=== PATIENT | male | born 1960 | race Two or more races ===

== ENCOUNTER 2017-09-25 23:49 | Inpatient (IN) | payer OTHER ==
[~2017-09-25] VITALS: Ht 180.3 cm; Wt 70.8 kg
--- NOTE | 2017-09-26 00:53 | NUR ---
DR BJORN MARTÍNEZ MD AT BEDSIDE FOR MSE.
[2017-09-26] MEDS ORDERED: ONDANSETRON 4 MG/2 ML VIAL IV ONE (01:00)
[2017-09-26] MEDS ORDERED: IV NORMAL SALINE 1000 ML BAG IV ONE (01:00)
[2017-09-26] MEDS ORDERED: HYDROMORPHONE 1 MG/1 ML DISP.SYRIN IV ONE ×2 (01:00→03:00)
--- NOTE | 2017-09-26 01:03 | NUR ---
PT C/O SHARP & RADIATING ABD PAIN. ALSO C/O N/V. PT IS CURRENTLY WRETCHING, BUT NO VOMITING SINCE PT HAS BEEN IN DEPARTMENT. PT STATES HE HAS A HX OF PANCREATITIS AND GASTRITIS. PT IS A&OX4. AMBULATORY W/ STEADY GAIT.
[2017-09-26] MEDS ORDERED: HYDROMORPHONE 2 MG/1 ML DISP.SYRIN ONE ×2 (01:26→02:51)
[2017-09-26] MEDS ORDERED: ONDANSETRON 4 MG/2 ML VIAL ONE (01:26)
[2017-09-26 01:48] LABS: HEMOGLOBIN 14.7 G/DL (14.0-18.0); MEAN CORPUSCULAR HEMOGLOBIN 32.8 UUG (27.0-31.0); MEAN CORPUSCULAR HGB CONC 35 g/dL (32.0-37.0); MEAN CORPUSCULAR VOLUME 93.8 FL (82.0-92.0); PLATELET COUNT (AUTO) 242 K/UL (150-450); RED BLOOD CELL COUNT(AUTO) 4.48 MIL/UL (4.7-6.1); WHITE BLOOD COUNT (AUTO) 7.2 K/UL (4.0-11.2)
[2017-09-26 01:49] LABS: BASOPHILS % (AUTO) 0.5 % (0.0-2.0); EOSINOPHILS % (AUTO) 1.2 % (0.0-7.0); LYMPHOCYTES % (AUTO) 27.2 % (20.5-51.5); MONOCYTES % (AUTO) 11.7 % (0.0-11.0); NEUTROPHILS % (AUTO) 59.4 % (38.5-71.5)
[2017-09-26 01:53] LABS: BILIRUBIN,DIRECT 0.1 mg/dL (0.0-0.2); BILIRUBIN,TOTAL 0.5 mg/dL (0.2-1.0); CREATININE 1.1 mg/dL (0.6-1.3); TOTAL PROTEIN, SERUM 8.5 g/dL (6.4-8.2)
[2017-09-26] MEDS ORDERED: IOHEXOL 300MG/ML 100 ML INFUS..BTL ONE (02:11)
[2017-09-26] MEDS ORDERED: SWABABLE VALVE TRANSFER SET EA MC ONE (02:11)
[2017-09-26] MEDS ORDERED: NORMAL SALINE FLUSH 10 ML DISP.SYRIN ONE (02:11)
[2017-09-26] MEDS ORDERED: IV NORMAL SALINE 100 ML ONE (02:11)
--- NOTE | 2017-09-26 02:17 | NUR ---
PT TAKEN TO CT VIA WHEELCHAIR. NO DISTRESS NOTED AT THIS TIME.
--- NOTE | 2017-09-26 02:33 | NUR ---
PT BACK FROM CT. NO ACUTE EVENTS. PT AMBULATED TO BATHROOM INDEPENDENTLY W/ STEADY GAIT. NO DISTRESS NOTED.
[2017-09-26 02:58] LABS: *BILIRUBIN,URIN NEGATIVE (NEGATIVE); *BLOOD, URINE NEGATIVE (NEGATIVE); *CLARITY,URINE CLEAR (CLEAR); *COLOR,URINE YELLOW (YELLOW); *KETONES,URINE NEGATIVE (NEGATIVE); *PROTEIN,URINE NEGATIVE (NEGATIVE); *UROBILINOGEN,URINE 0.2 E.U./dl (NORMAL); LEUKOCYTE ESTERASE ,URINE NEGATIVE (NEGATIVE); NITRITE, URINE NEGATIVE (NEGATIVE); PH,URINE 5.5 (5.0-8.0); UGLUCOSE NEGATIVE (NEGATIVE)
[2017-09-26 03:17] LABS: BACTERIA,URINE NONE SEEN /HPF (NONE SEEN); RBC,URINE NONE SEEN /HPF (0-3); SQUAMOUS EPITHELIAL CELL,UR FEW /HPF (NONE SEEN)
[2017-09-26 03:18] LABS: MUCUS,URINE FEW /LPF (0-FEW); WBC,URINE 0-3 /HPF (0-3)
--- NOTE | 2017-09-26 03:27 | NUR ---
PT HAS NOT TAKEN ANY MEDS IN A FEW WEEKS.
--- NOTE | 2017-09-26 03:50 | NUR ---
REPORT GIVEN TO TETO BAUMANN.
[2017-09-26] MEDS ORDERED: IV NS 1000 ML 1,000 ML IV PRN (03:55)
[2017-09-26 04:00] VITALS: BP 151/95
[2017-09-26] MEDS ORDERED: ONDANSETRON 4 MG/2 ML VIAL IV PRN (04:00)
[2017-09-26] MEDS ORDERED: Z GUARD REMEDY PASTE 57 GM TUBE TOP PRN (04:00)
[2017-09-26] MEDS ORDERED: MAGNESIUM HYDROXIDE 30 ML LIQUID UDC PO PRN (04:00)
[2017-09-26] MEDS ORDERED: ACETAMINOPHEN 325 MG TABLET PO PRN (04:00)
[2017-09-26] MEDS ORDERED: MORPHINE SULFATE 4 MG/1 ML DISP.SYRIN IV PRN (04:00)
--- NOTE | 2017-09-26 04:18 | NUR ---
ACCOMPANIED BY SECURITY TO TAKE PT TO CAR TO RETRIEVE PERSONAL BELINGINGS. PT TAKEN VIA WHEELCHAIR. NO ACUTE EVENTS. PT BACK IN ROOM. PENDING ADMISSION.
--- NOTE | 2017-09-26 04:50 | NUR ---
ADMITTED IN MED SURG FLOOR UNDER THE CARE OF CELIA DE LA CRUZ, BELONGING LIST DONE.
--- NOTE | 2017-09-26 04:50 | NUR ---
Pt. admitted to [facility], under care of JONO. Belongs List completed
--- NOTE | 2017-09-26 07:38 | NUR ---
Received pt awake, alert and oriented times 4. Pt was stating 9/10 pain across his abdomen. Morphine 2mg given. Pt states that is not enough for him. Pt is NPO, no s/s of immediate SOB or distress. Noted with anxiety and pain. Pt is requesting 6mg Morphine, Benadryl, Ativan and states he feels bloated, pt concern will be mentioned to the hospitalist.
--- NOTE | 2017-09-26 08:28 | NUR ---
Hospitalist is aware of patient's requests
[2017-09-26] MEDS: PANTOPRAZOLE SODIUM 40 MG VIAL IV SCH (08:58)
[2017-09-26] MEDS: HYDROCODONE/APAP 5-325MG TABLET PO PRN ×4 (10:09→22:58)
[2017-09-26 11:46] VITALS: BP_SYST 110; BP_SYST 138; BP_DIAS 65; BP_DIAS 91
[2017-09-26] MEDS: IV LACTATED RINGERS SOLUTION 1,000 ML IV PRN ×2 (12:14→20:30)
[2017-09-26] MEDS: MORPHINE SULFATE 4 MG/1 ML DISP.SYRIN IV PRN ×3 (12:14→21:17)
[2017-09-26] MEDS: LORAZEPAM 2 MG/1 ML VIAL IV PRN ×2 (13:18→22:07)
[2017-09-26] MEDS: diphenhydrAMINE 50 MG/1 ML VIAL IV PRN ×2 (13:18→19:45)
[2017-09-26 15:38] VITALS: BP 134/85
[2017-09-26] MEDS ORDERED: LIPASE/PROTEASE/AMYLASE 4200 UNITS CAPSULE.DR PO SCH (17:00)
[2017-09-26] MEDS ORDERED: THIAMINE HCL 200 MG/2 ML VIAL IM ONE (17:00)
[2017-09-26] MEDS: FOLIC ACID/VITAMIN B COMP W-C TABLET PO SCH (17:55)
[2017-09-26] MEDS: LIPASE/PROTEASE/AMYLASE 4200 UNITS CAPSULE.DR PO SCH (17:55)
[2017-09-26 20:00] VITALS: BP 140/91
--- NOTE | 2017-09-26 22:00 | NUR ---
Pt pleasant, cooperative. Ambulates well around the Unit and tolerates well. Pt on multiple med regimen for pain/discomfort. See EMar.
[2017-09-27] MEDS: MORPHINE SULFATE 4 MG/1 ML DISP.SYRIN IV PRN ×3 (00:45→10:17)
[2017-09-27] MEDS: diphenhydrAMINE 50 MG/1 ML VIAL IV PRN ×2 (01:45→10:18)
--- NOTE | 2017-09-27 01:50 | NUR ---
HAMIDA Melendrez called for sleeping med order per pt request; received Ambien order and carried out.
[2017-09-27] MEDS ORDERED: ZOLPIDEM 5 MG TABLET PO PRN (02:00)
[2017-09-27] MEDS: LORAZEPAM 2 MG/1 ML VIAL IV PRN ×2 (03:58→10:18)
[2017-09-27] MEDS: IV LACTATED RINGERS SOLUTION 1,000 ML IV PRN (03:59)
[2017-09-27 04:00] VITALS: BP 145/95
[2017-09-27] MEDS: HYDROCODONE/APAP 5-325MG TABLET PO PRN ×2 (06:00→14:34)
--- NOTE | 2017-09-27 06:00 | NUR ---
Barely slept, frequently ambulating around the halls. All needs met; pt very appreciative of care.
[2017-09-27 06:40] LABS: BASOPHILS % (AUTO) 0.9 % (0.0-2.0); EOSINOPHILS # (AUTO) 0.2 K/uL (0.0-0.7); EOSINOPHILS % (AUTO) 4.7 % (0.0-7.0); HEMATOCRIT 34.8 % (36.7-47.1); HEMOGLOBIN 12.1 g/dL (12.5-16.3); LYMPHOCYTES # (AUTO) 1.2 K/uL (20.0-40.0); LYMPHOCYTES % (AUTO) 31.6 % (20.5-51.5); MEAN CORPUSCULAR HEMOGLOBIN 32.9 uug (23.8-33.4); MEAN CORPUSCULAR HGB CONC 35 g/dL (32.5-36.3); MEAN CORPUSCULAR VOLUME 94.6 fL (73.0-96.2); MONOCYTES # (AUTO) 0.5 K/uL (2.0-10.0); MONOCYTES % (AUTO) 11.4 % (0.0-11.0); NEUTROPHILS % (AUTO) 51.4 % (38.5-71.5); PLATELET COUNT (AUTO) 162 K/uL (152-348); RED BLOOD CELL COUNT(AUTO) 3.68 MIL/uL (4.06-5.63); WHITE BLOOD COUNT (AUTO) 3.9 K/uL (3.6-10.2)
[2017-09-27 06:46] LABS: BILIRUBIN,TOTAL 0.8 mg/dL (0.2-1.0); CREATININE 1.1 mg/dL (0.6-1.3); MAGNESIUM 1.8 mg/dL (1.8-2.4); PHOSPHOROUS 3.7 mg/dL (2.5-4.9); POTASSIUM 4.2 mmol/L (3.5-5.1); TOTAL PROTEIN, SERUM 6.5 g/dL (6.4-8.2)
[2017-09-27 06:53] LABS: THYROID STIMULATING HORMONE 3.834 mIU/mL (0.358-3.740)
--- NOTE | 2017-09-27 07:10 | NUR ---
Received pt awake, alert and oriented times 4, pt c/co pain but informed him he has pain medication given at 6am. Pt is under no apparent s/s of SOB or respiratory distress
[2017-09-27] MEDS: PANTOPRAZOLE SODIUM 40 MG VIAL IV SCH (08:08)
[2017-09-27] MEDS: FOLIC ACID/VITAMIN B COMP W-C TABLET PO SCH (08:08)
[2017-09-27] MEDS: LIPASE/PROTEASE/AMYLASE 4200 UNITS CAPSULE.DR PO SCH ×2 (08:08→12:26)
--- NOTE | 2017-09-27 09:00 | NUR ---
ENGINEERING TEST SPECIALIST consulting with the pt and pt was informed about discharge orders
--- NOTE | 2017-09-27 11:12 | NUR ---
Informed pt that he was discharge today, pt states he wants to stay another day. He was informed he could but that his IV medication would have to be discontinued, pt wants to speak with a shelving supervisor. Hospital shelving supervisor was called and informed her about the pt's request to take to her.
[2017-09-27 11:47] VITALS: BP 149/96
[2017-09-27 15:37] VITALS: BP 150/90
--- NOTE | 2017-09-27 16:00 | NUR ---
Pt talked to Director of the med-surg floor. It was informed that the pt had been discharged with orders and to F/U with primary doctor for further care. Personal belonging signed for, discharge paper signed for ID band & IV line removed. Pt states pain 8-9/10 since arrival even after pain medication given. Pt stated he has a high pain tolerance. Pt was given his prescription and pt verbally stated he understood what they were for. Pt is under no immediate s/s of SOB or respiratory distress.
[2017-09-28] MEDS ORDERED: PANTOPRAZOLE SODIUM 40 MG TABLET.DR PO SCH (07:00)
== END 2017-09-27 15:52 | disposition home or self-care (01) | DRG 282 ==
LOC: ER 23:56 → MED 09-26 04:34
PROVIDERS: ADMIT Nurse Practitioner Acute Care; ATTEND Nurse Practitioner Acute Care
DX: K86.0 Alcohol-induced chronic pancreatitis (principal); K70.10 Alcoholic hepatitis without ascites; F10.20 Alcohol dependence, uncomplicated; Y90.9 Presence of alcohol in blood, level not specified; Z96.89 Presence of other specified functional implants; K21.9 Gastro-esophageal reflux disease without esophagitis; R14.0 Abdominal distension (gaseous); R74.0 Nonspecific elevation of levels of transaminase and lactic acid dehydrogenase [LDH]
CPT/HCPCS: 36415; 83690; 83735; 84100; 84443; 85025; 85730; A4663; C9113; J1170; J1200; J2060; J2270; J2405; J3411; J3490; J7030; J7120; Q9967

== ENCOUNTER 2019-05-16 18:28 | Inpatient (IN) | payer OTHER ==
[~2019-05-16] VITALS: Ht 182.9 cm; Wt 74.8 kg
--- NOTE | 2019-05-16 19:00 | NUR ---
Patient came into ER via wheelchair c/o lower back and tailbone pain. Patient states he is withdrawing and had a seizure which caused back injury. Patient upon arrival A/Ox3 with breath smelling of ETOH but patient denies drinking ETOH today.
[2019-05-16] MEDS ORDERED: HYDROMORPHONE 1 MG/1 ML DISP.SYRIN IM ONE (19:15)
[2019-05-16] MEDS ORDERED: IV NORMAL SALINE 1000 ML BAG IV ONE (19:15)
[2019-05-16] MEDS ORDERED: ONDANSETRON 4 MG/2 ML VIAL IV ONE ×2 (19:15→21:30)
[2019-05-16] MEDS ORDERED: HYDROMORPHONE 1 MG/1 ML DISP.SYRIN ONE ×2 (19:24→21:35)
[2019-05-16] MEDS ORDERED: ONDANSETRON 4 MG/2 ML VIAL ONE ×2 (19:24→21:35)
[2019-05-16 19:35] LABS: BASOPHILS # (AUTO) 0.1 K/uL (0.0-8.0); BASOPHILS % (AUTO) 0.7 % (0.0-2.0); EOSINOPHILS # (AUTO) 0.1 K/uL (0.0-0.7); EOSINOPHILS % (AUTO) 1.1 % (0.0-7.0); HEMATOCRIT 40.7 % (36.7-47.1); HEMOGLOBIN 13.3 g/dL (12.5-16.3); LYMPHOCYTES # (AUTO) 1.9 K/uL (20.0-40.0); LYMPHOCYTES % (AUTO) 22.9 % (20.5-51.5); MEAN CORPUSCULAR HEMOGLOBIN 28.9 uug (23.8-33.4); MEAN CORPUSCULAR HGB CONC 33 g/dL (32.5-36.3); MEAN CORPUSCULAR VOLUME 88.5 fL (73.0-96.2); MONOCYTES # (AUTO) 0.4 K/uL (2.0-10.0); MONOCYTES % (AUTO) 4.6 % (0.0-11.0); NEUTROPHILS # (AUTO) 5.9 K/uL (1.8-8.9); NEUTROPHILS % (AUTO) 70.7 % (38.5-71.5); PLATELET COUNT (AUTO) 339 K/uL (152-348); WHITE BLOOD COUNT (AUTO) 8.4 K/uL (3.6-10.2)
[2019-05-16 19:40] LABS: POTASSIUM 4.6 mmol/L (3.5-5.1)
[2019-05-16 19:46] LABS: BILIRUBIN,DIRECT 0.1 mg/dL (0.0-0.2); BILIRUBIN,TOTAL 0.3 mg/dL (0.2-1.0); TOTAL PROTEIN, SERUM 8.3 g/dL (6.4-8.2)
[2019-05-16 20:42] LABS: *BILIRUBIN,URIN NEGATIVE (NEGATIVE); *BLOOD, URINE NEGATIVE (NEGATIVE); *CLARITY,URINE CLEAR (CLEAR); *COLOR,URINE YELLOW (YELLOW); *KETONES,URINE NEGATIVE (NEGATIVE); *UROBILINOGEN,URINE 0.2 E.U./dl (NORMAL); LEUKOCYTE ESTERASE ,URINE NEGATIVE (NEGATIVE); NITRITE, URINE NEGATIVE (NEGATIVE); PH,URINE 5.5 (5.0-8.0); UGLUCOSE NEGATIVE (NEGATIVE)
[2019-05-16 20:53] LABS: *AMPHETAMINE, URINE NEGATIVE (NEGATIVE); *BARBITURATE, URINE NEGATIVE (NEGATIVE); *CANNABINOID, URINE NEGATIVE (NEGATIVE); *COCCAINE, URINE NEGATIVE (NEGATIVE); *OPIATE, URINE POSITIVE (NEGATIVE); *PHENCYCLIDINE SCREEN,URINE NEGATIVE (NEGATIVE)
[2019-05-16] MEDS ORDERED: HYDROMORPHONE 1 MG/1 ML DISP.SYRIN IV ONE (21:30)
--- NOTE | 2019-05-16 21:30 | NUR ---
IV Hep Lock infiltrated on left hand. IV removed. Catheter intact and site benign. Pressure and 4x4 gauze applied to site. No bleeding noted.
[2019-05-16] MEDS ORDERED: LORAZEPAM 2 MG/1 ML VIAL IV ONE (23:15)
--- NOTE | 2019-05-16 23:25 | NUR ---
Patient c/o anxiety. Dr Nino made aware.
[2019-05-16] MEDS ORDERED: LORAZEPAM 2 MG/1 ML VIAL ONE (23:31)
--- NOTE | 2019-05-16 23:47 | NUR ---
Recieved authorization from insurance company to admit patient.
--- NOTE | 2019-05-16 23:49 | NUR ---
Paged E[facility] panel. Waiting for Dr Cardona to call back.
--- NOTE | 2019-05-17 00:25 | NUR ---
DR Nino speaking with DR Pepito Arellano MD motion picture scene builder for [facility].
[2019-05-17] MEDS ORDERED: MAGNESIUM HYDROXIDE 30 ML LIQUID UDC PO PRN (00:45)
[2019-05-17] MEDS ORDERED: ONDANSETRON 4 MG/2 ML VIAL IV PRN (00:45)
[2019-05-17] MEDS ORDERED: ACETAMINOPHEN 325 MG TABLET PO PRN (00:45)
[2019-05-17] MEDS ORDERED: HYDROMORPHONE 1 MG/1 ML DISP.SYRIN IV ONE (01:00)
[2019-05-17] MEDS ORDERED: PANT40TA2 PO (01:11)
[2019-05-17] MEDS ORDERED: GABA600T12 PO (01:11)
[2019-05-17] MEDS ORDERED: AMYL1CAP58 PO (01:11)
--- NOTE | 2019-05-17 01:20 | NUR ---
Transfer to 3rd floor via gurny.
[2019-05-17 01:34] VITALS: BP 142/94
[2019-05-17] MEDS: IV D5 1/2 NS 1000 ML 1,000 ML IV PRN ×2 (01:57→17:51)
[2019-05-17] MEDS: LORAZEPAM 2 MG/1 ML VIAL IV PRN ×3 (02:33→17:52)
[2019-05-17 04:00] VITALS: BP 116/68
[2019-05-17] MEDS: HYDROCODONE/APAP 10-325 MG TABLET PO PRN ×2 (04:05→11:04)
[2019-05-17] MEDS: PANTOPRAZOLE SODIUM 40 MG TABLET.DR PO SCH (06:24)
[2019-05-17] MEDS: HYDROMORPHONE 1 MG/1 ML DISP.SYRIN IV PRN ×3 (06:24→19:54)
--- NOTE | 2019-05-17 07:30 | NUR ---
Patient calm comfortable with no signs of distress; patient will continue to be monitored.
[2019-05-17] MEDS ORDERED: PANTOPRAZOLE SODIUM 40 MG TABLET.DR PO SCH (09:00)
[2019-05-17] MEDS: GABAPENTIN 300 MG CAPSULE PO SCH ×3 (09:02→17:51)
[2019-05-17] MEDS: LIPASE/PROTEASE/AMYLASE 4200 UNITS CAPSULE.DR PO SCH ×3 (09:03→17:50)
[2019-05-17 11:17] VITALS: BP 128/89
[2019-05-17] MEDS: diphenhydrAMINE 25 MG CAP PO PRN (15:05)
[2019-05-17 15:08] VITALS: BP 138/91
--- NOTE | 2019-05-17 18:41 | NUR ---
Patient has been stable through out shift with no signs of distress; patient with pain; but given prn Dilaudid as scheduled along with Ativan for alcohol withdrawal; patient with stable vital signs; Report given to oncoming nurse.
--- NOTE | 2019-05-17 19:35 | NUR ---
RECEIVED PATIENT AWAKE IN BED. AO X 4. MIDLINE ON LEFT UPPER ARM FLUSHING, PATENT, AND INTACT. COMPLAINS OF PAIN IN ABDOMEN AND BACK ABOUT 9/10. WILL MEDICATE APPROPRIATELY. IMMEDIATE NEEDS ATTENDED. SAFETY PRECAUTIONS IN PLACE. WILL CONTINUE TO MONITOR
[2019-05-17 20:23] VITALS: BP 132/85
[2019-05-18] MEDS: HYDROMORPHONE 1 MG/1 ML DISP.SYRIN IV PRN ×6 (00:04→23:04)
[2019-05-18] MEDS: diphenhydrAMINE 25 MG CAP PO PRN (00:10)
[2019-05-18] MEDS: LORAZEPAM 2 MG/1 ML VIAL IV PRN ×3 (02:49→23:16)
[2019-05-18] MEDS: IV D5 1/2 NS 1000 ML 1,000 ML IV PRN ×3 (03:53→23:05)
--- NOTE | 2019-05-18 05:16 | NUR ---
PATIENT SLEPT INTERMITTENTLY THROUGHOUT THE NIGHT. PATIENT COMPLAINED OF SEVERE PAIN IN THE BACK AND ABDOMEN. MANAGED PAIN WITH PRN PAIN MEDICATIONS. NO ACUTE CHANGE IN PATIENT CONDITION. VITAL SIGNS WITHIN NORMAL LIMITS. WILL ENDORSE TO ONCOMING SHIFT.
[2019-05-18 05:59] VITALS: BP 132/80
[2019-05-18] MEDS: PANTOPRAZOLE SODIUM 40 MG TABLET.DR PO SCH (06:13)
--- NOTE | 2019-05-18 07:20 | NUR ---
RECEIVED PATIENT IN BED, AOX4. PATIENT COMPLAINS OF BACK AND ABDOMINAL PAIN, BUT DENIES SOB OR CHEST PAIN. WILL GIVE PAIN MEDICATION ORDERED. LEFT UPPER MIDLINE IN PLACE AND FLUSHING WELL WITH D5 1/2 NS AT 100CC/HR. SAFETY AND FALL PREVENTION IN PLACE. CALL LIGHT IN REACH, BED IN LOW POSITION AND LOCKED. WILL CONTINUE TO MONITOR.
[2019-05-18] MEDS: GABAPENTIN 300 MG CAPSULE PO SCH ×3 (08:55→17:04)
[2019-05-18] MEDS: LIPASE/PROTEASE/AMYLASE 4200 UNITS CAPSULE.DR PO SCH ×3 (08:55→17:04)
[2019-05-18 11:37] VITALS: BP 133/78
[2019-05-18] MEDS: HYDROCODONE/APAP 5-325MG TABLET PO PRN ×2 (11:40→20:34)
[2019-05-18] MEDS ORDERED: AMYL1CAP56 PO (13:58)
--- NOTE | 2019-05-18 14:34 | NUR ---
Spoken with NNEKA from [email or web address] has set up appt for pt [phone] with pts PMD to follow up with. Date for appt is May 26 @ 1030.
[2019-05-18 15:56] VITALS: BP 150/92
--- NOTE | 2019-05-18 18:30 | NUR ---
PATIENT CONTINUED TO TO BE AOX4. PATIENT DOES NOT SHOW S/S OF RESPIRATORY DISTRESS OR SOB. PATIENT CONTINUES TO HAVE BACK/ABD. PAIN AND IS TREATED WITH PRN MEDICATIONS ORDERED. REMAINS STABLE THROUGHOUT THE SHIFT. SAFETY AND FALL PREVENTION IN PLACE. BED LOW AND LOCKED. CALL LIGHT IN REACH. WILL REPORT TO ONCOMING NURSE.
--- NOTE | 2019-05-18 19:00 | NUR ---
PATIENT ALERT ORIENTED, NO SOB NO CHEST PAIN, CONT ON PAIN MANAGEMENT, DUE PAIN ON BACK, AND WITHDRAWAL FROM ALCOHOL. CALL LIGHT WITHIN REACH.
[2019-05-18 19:54] VITALS: BP 136/82
[2019-05-19] MEDS: HYDROMORPHONE 1 MG/1 ML DISP.SYRIN IV PRN ×2 (03:05→08:57)
[2019-05-19 05:05] VITALS: BP 150/88
[2019-05-19] MEDS: PANTOPRAZOLE SODIUM 40 MG TABLET.DR PO SCH (06:23)
[2019-05-19 06:52] LABS: EOSINOPHILS # (AUTO) 0.2 K/uL (0.0-0.7); EOSINOPHILS % (AUTO) 4.8 % (0.0-7.0); LYMPHOCYTES # (AUTO) 1.2 K/uL (20.0-40.0); LYMPHOCYTES % (AUTO) 27.3 % (20.5-51.5); MEAN CORPUSCULAR HGB CONC 34 g/dL (32.5-36.3); MONOCYTES # (AUTO) 0.3 K/uL (2.0-10.0); MONOCYTES % (AUTO) 7.7 % (0.0-11.0); NEUTROPHILS # (AUTO) 2.5 K/uL (1.8-8.9); NEUTROPHILS % (AUTO) 59.2 % (38.5-71.5); RED BLOOD CELL COUNT(AUTO) 3.85 MIL/uL (4.06-5.63)
[2019-05-19] MEDS: IV D5 1/2 NS 1000 ML 1,000 ML IV PRN ×2 (07:00→08:47)
[2019-05-19 07:01] LABS: WHITE BLOOD COUNT (AUTO) 4.2 K/uL (3.6-10.2)
[2019-05-19 07:02] LABS: HEMATOCRIT 34.3 % (36.7-47.1); HEMOGLOBIN 11.6 g/dL (12.5-16.3); PLATELET COUNT (AUTO) 251 K/uL (152-348); POTASSIUM 4.1 mmol/L (3.5-5.1)
--- NOTE | 2019-05-19 07:36 | NUR ---
PATIENT ALERT ORIENTED, CONT ON PAIN MANAGEMENT, NO DISTRESS NOTED, ENDORSE TO NEXT SHIFT.
--- NOTE | 2019-05-19 08:00 | NUR ---
RECEIVED PATIENT RESTING IN BED COMFORTABLY. NO SIGNS OF ACUTE DISTRESS OR SOB. CALL LIGHT WITHIN REACH. PT'S PAIN MANAGED WITH MEDICATION. BED LOCKED AND IN LOW POSITION. PT ALERT AND ORIENTED X3. WILL CONTINUE TO MONITOR FOR SAFETY AND COMFORT.
[2019-05-19] MEDS: GABAPENTIN 300 MG CAPSULE PO SCH ×3 (08:56→17:44)
[2019-05-19] MEDS ORDERED: HYDR-4354 PO ×2 (08:58→15:09)
[2019-05-19] MEDS ORDERED: AMYL1CAP56 PO ×2 (09:02→15:09)
[2019-05-19] MEDS ORDERED: GABA600T PO (09:02)
[2019-05-19] MEDS: LIPASE/PROTEASE/AMYLASE 4200 UNITS CAPSULE.DR PO SCH ×3 (09:24→18:12)
[2019-05-19] MEDS: LORAZEPAM 2 MG/1 ML VIAL IV PRN (10:52)
[2019-05-19 11:18] VITALS: BP 137/100
[2019-05-19] MEDS ORDERED: CHLORDIAZEPOXIDE HCL 25 MG CAPSULE PO PRN (12:00)
[2019-05-19] MEDS: HYDROCODONE/APAP 10-325 MG TABLET PO PRN ×2 (13:12→17:44)
[2019-05-19] MEDS ORDERED: GABA600T12 PO (15:09)
[2019-05-19 16:00] VITALS: BP 151/90
--- NOTE | 2019-05-19 18:30 | NUR ---
PT DISCHARGED HOME. NO ACUTE DISTRESS OR SOB NOTED. PT USED WALKER ACCOMPANIED BY STAFF TO MAIN LOBBY. PT IS STABLE PER MD. DISCHARGE INSTRUCTIONS GIVEN TO PATIENT WITH GOOD UNDERSTANDING. HAMIDA BALDERAS CALLED IN RX TO 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 BELONGINGS RETURNED. MID LINE IV REMOVED INTACT. PT ALERT AND ORIENTED X3.
== END 2019-05-19 18:45 | disposition home or self-care (01) | DRG 775 ==
LOC: ER 18:29 → TELE3 05-17 00:25 → MEDSURG3 05-17 09:27
PROVIDERS: ATTEND Nurse Practitioner Acute Care
PROC: 05HC33Z Insertion of Infusion Device into Left Basilic Vein, Percutaneous Approach (ICD-10-PCS; principal; 2019-05-17)
DX: F10.239 Alcohol dependence with withdrawal, unspecified (principal); G62.1 Alcoholic polyneuropathy; K70.10 Alcoholic hepatitis without ascites; Y90.3 Blood alcohol level of 60-79 mg/100 ml; E86.0 Dehydration; K86.0 Alcohol-induced chronic pancreatitis; M47.812 Spondylosis without myelopathy or radiculopathy, cervical region; I70.0 Atherosclerosis of aorta; N20.0 Calculus of kidney; E87.1 Hypo-osmolality and hyponatremia; G89.29 Other chronic pain; R26.2 Difficulty in walking, not elsewhere classified; M54.9 Dorsalgia, unspecified; M79.606 Pain in leg, unspecified; K86.81 Exocrine pancreatic insufficiency
CPT/HCPCS: 36415; 70030-TC; 70450; 71045; 72125; 80307; 83690; 85025; 85730; 93005; A4663; G0378; G0480; J1170; J2060; J2405; J3490; J7030; Q0163

== ENCOUNTER 2019-06-24 00:13 | Emergency (ER) | payer OTHER ==
[~2019-06-24] VITALS: Ht 180.3 cm; Wt 77.1 kg
[~2019-06-24 00:13] MED LIST: AMYL1CAP56 PO; GABA600T PO; GABA600T12 PO; HYDR-4354 PO; PANT40TA2 PO
[2019-06-24] MEDS ORDERED: LORAZEPAM 2 MG/1 ML VIAL IV ONE (00:30)
--- NOTE | 2019-06-24 00:30 | NUR ---
Dr. Jimenez at bedside for MSE.
--- NOTE | 2019-06-24 01:00 | NUR ---
Pt states unable to provide urine sample at this time.
[2019-06-24] MEDS ORDERED: LORAZEPAM 2 MG/1 ML VIAL ONE (01:04)
[2019-06-24 01:10] LABS: BASOPHILS % (AUTO) 0.9 % (0.0-2.0); EOSINOPHILS # (AUTO) 0.4 K/uL (0.0-0.7); EOSINOPHILS % (AUTO) 8.9 % (0.0-7.0); HEMATOCRIT 37.6 % (36.7-47.1); HEMOGLOBIN 12.8 g/dL (12.5-16.3); LYMPHOCYTES # (AUTO) 2.2 K/uL (20.0-40.0); LYMPHOCYTES % (AUTO) 51.7 % (20.5-51.5); MEAN CORPUSCULAR HEMOGLOBIN 28.9 uug (23.8-33.4); MEAN CORPUSCULAR HGB CONC 34 g/dL (32.5-36.3); MEAN CORPUSCULAR VOLUME 84.8 fL (73.0-96.2); MONOCYTES # (AUTO) 0.5 K/uL (2.0-10.0); MONOCYTES % (AUTO) 12.5 % (0.0-11.0); NEUTROPHILS # (AUTO) 1.1 K/uL (1.8-8.9); PLATELET COUNT (AUTO) 352 K/uL (152-348); RED BLOOD CELL COUNT(AUTO) 4.44 MIL/uL (4.06-5.63); WHITE BLOOD COUNT (AUTO) 4.3 K/uL (3.6-10.2)
--- NOTE | 2019-06-24 01:44 | NUR ---
SPoke to Akil in ER Lab, patient ETOH 0.15%
[2019-06-24 01:47] LABS: ALANINE AMINOTRANSFERASE 17 U/L (16-63); ALKALINE PHOSPHATASE 94 U/L (50-136); ASPARTATE AMINOTRANSFERASE 18 U/L (15-37); BILIRUBIN,DIRECT 0.1 mg/dL (0.0-0.2); BILIRUBIN,TOTAL 0.2 mg/dL (0.2-1.0); CARBON DIOXIDE 26 mmol/L (21-32); CHLORIDE 102 mmol/L (98-107); CREATININE 1.1 mg/dL (0.6-1.3); GLUCOSE 103 mg/dL (74-106); LIPASE 29 U/L (73-393); POTASSIUM 4.2 mmol/L (3.5-5.1); TOTAL PROTEIN, SERUM 8.4 g/dL (6.4-8.2); UREA NITROGEN, BLOOD 9 mg/dL (7-18)
--- NOTE | 2019-06-24 02:14 | NUR ---
Patient discharged to home in stable conditon. Written and verbal after care instructions given. Patient verbalizes understanding of instructions. Pt ambulated out of ER with steady gait, no acute signs of distress, VSS, all belongings taken.
[2019-06-24 02:16] VITALS: BP 101/78
== END 2019-06-24 02:17 | disposition home or self-care (01) ==
LOC: ER 00:16
DX: F10.239 Alcohol dependence with withdrawal, unspecified (principal); G89.4 Chronic pain syndrome; K21.9 Gastro-esophageal reflux disease without esophagitis; R10.9 Unspecified abdominal pain; Z79.899 Other long term (current) drug therapy; Y90.6 Blood alcohol level of 120-199 mg/100 ml
CPT/HCPCS: 36415; 80048; 80076; 82140; 83690; 85025; 93005; 96374; 99284; G0480; J2060; A4663